=== PATIENT | female | born 1955 | race Caucasian/White ===

== ENCOUNTER 2019-09-06 19:25 | Emergency (ER) | payer OTHER ==
[~2019-09-06] VITALS: Ht 157.5 cm; Wt 78.7 kg
[~2019-09-06 19:25] MED LIST: ACET500C5 PO; CEPH-443 PO; CIPR500T4 PO
[2019-09-06 19:38] VITALS: Ht 157.5 cm; Wt 78.7 kg
[2019-09-06] MEDS ORDERED: ONDANSETRON 4 MG INJ IV STA (20:18)
[2019-09-06] MEDS ORDERED: SOD CHLORIDE 0.9% 1,000 ML IV STA (20:18)
[2019-09-06] MEDS ORDERED: MECLIZINE 12.5 MG TAB PO ONE (20:30)
[2019-09-06 21:52] VITALS: BP 113/63; PULSE 66; RESP 19
== END 2019-09-06 21:52 | disposition home or self-care (01) ==
LOC: FTE 19:25
DX: N39.0 Urinary tract infection, site not specified (principal); I10 Essential (primary) hypertension
CPT/HCPCS: 36415; 70450; 71045; 80053; 81001; 84484; 85025; 85610; 85730; 93005; 96361; 96374; J2405; J7030; Z7502; Z7610